=== PATIENT | female | born 1980 | race Caucasian/White ===

== ENCOUNTER 2018-05-30 08:41 | Emergency (ER) | payer BC ==
[2018-05-30 08:52] VITALS: BP 123/71
--- NOTE | 2018-05-30 09:41 | UC ---
Throat Pain/Nasal Frank HPI - HPI Summary HPI Summary: 38 yo female presents with sore throat for the last 2 days and dry cough for the last 4-5 days. Today she woke up and noticed her voice was raspy. Her children have been sick with similar symptoms and resolved in 5-7 days. Pt has been taking tylenol/ibuprofen with mild relief. She is eating and drinking well. Denies fever, chills, sinus symptoms, SOB, n/v. - History of Current Complaint Chief Complaint: UCRespiratory Stated Complaint: SORE THROAT Time Seen by Provider: 05/30/18 09:41 Hx Obtained From: Patient Hx Last Menstrual Period: IUD Onset/Duration: Gradual Onset Severity: Moderate Pain Intensity: 6 Pain Scale Used: 0-10 Numeric Cough: Nonproductive - Allergies/Home Medications Allergies/Adverse Reactions: Allergies Allergy/AdvReac Type Severity Reaction Status Date / Time Penicillins Allergy Hives Verified 05/30/18 08:52 Home Medications: Home Medications Sertraline* [Zoloft*] 100 mg PO DAILY 05/30/18 [History Confirmed 05/30/18] PMH/Surg Hx/FS Hx/Imm Hx Psychological History: Anxiety, Depression - Surgical History Surgical History: None - Family History Known Family History: Positive: None - Social History Occupation: Employed Full-time Lives: With Family Alcohol Use: Occasionally Substance Use Type: None Smoking Status (MU): Never Smoked Tobacco Review of Systems All Other Systems Reviewed And Are Negative: Yes Constitutional: Positive: Negative Skin: Positive: Negative Eyes: Positive: Negative ENT: Positive: Sore Throat Respiratory: Positive: Cough Cardiovascular: Positive: Negative Gastrointestinal: Positive: Negative Neurovascular: Positive: Negative Neurological: Positive: Negative Psychological: Positive: Negative Physical Exam - Summary Physical Exam Summary: GENERAL: NAD. WDWN. No pain distress. SKIN: No rashes, sores, lesions, or open wounds. HEENT: Head: AT/NC Eyes: EOM intact. Conjunctiva clear without inflammation or discharge. Ears: Hearing grossly normal. TMs intact, no bulging, erythema, or edema. Nose: Nasal mucosa pink and moist. NTTP maxillary and frontal sinus. Throat: Posterior oropharynx without exudates, erythema, or tonsillar enlargement. Uvula midline. NECK: Supple. Nontender. No lymphadenopathy. CHEST: CTAB. No r/r/w. No accessory muscle use. Breathing comfortably and in no distress. CV: RRR. Without m/r/g. Pulses intact. Cap refill <2seconds NEURO: Alert. PSYCH: Age appropriate behavior. Triage Information Reviewed: Yes Vital Signs: Initial Vital Signs Temp 99.9 F 05/30/18 08:48 Pulse 67 05/30/18 08:48 Resp 16 05/30/18 08:48 BP 123/71 05/30/18 08:48 Pulse Ox 98 05/30/18 08:48 Laboratory Tests 05/30/18 09:54 Group A Strep Rapid Negative Vital Signs Reviewed: Yes Throat Pain/Nasal Course/Dx - Course Course Of Treatment: POC strep negative. Suspect viral illness. Discussed with pt and advised to continue OTC medications and f/u if symptoms do not improve. - Differential Dx/Diagnosis Provider Diagnosis: Viral syndrome Discharge - Sign-Out/Discharge Documenting (check all that apply): Patient Departure All imaging exams completed and their final reports reviewed: No Studies - Discharge Plan Condition: Stable Disposition: HOME Patient Education Materials: Pharyngitis (ED), Viral Syndrome (ED) Referrals: No Primary Care Phys,NOPCP [Primary Care Provider] - Additional Instructions: If you develop a fever, shortness of breath, chest pain, new or worsening symptoms - please call your PCP or go to the ED. - Billing Disposition and Condition Condition: STABLE Disposition: Home
== END 2018-05-30 10:09 | disposition home or self-care (01) ==
LOC: UCEAST 08:41
DX: B34.9 Viral infection, unspecified (principal); Z88.0 Allergy status to penicillin
CPT/HCPCS: 87651; 99211; G0463

== ENCOUNTER 2018-06-09 15:33 | Emergency (ER) | payer BC ==
[2018-06-09 15:46] VITALS: BP 124/67
--- NOTE | 2018-06-09 17:13 | UC ---
UC General HPI - HPI Summary HPI Summary: 38 yo female c/o progressively worse cough x 2 weeks. + household contact sick , but better. Today cough worse. Hurts chest to cough. No rash. Mild st. Today just doesn't "feel right." No GI c/o's except abdomen hurts with deep cough. No rash. No ear / eye / head issues. - History of Current Complaint Chief Complaint: UCRespiratory Stated Complaint: COUGH Time Seen by Provider: 06/09/18 16:54 Hx Obtained From: Patient Hx Last Menstrual Period: unkown- nursing Pain Intensity: 7 - Allergy/Home Medications Allergies/Adverse Reactions: Allergies Allergy/AdvReac Type Severity Reaction Status Date / Time Penicillins Allergy Hives Verified 06/09/18 15:46 Home Medications: Home Medications Levonorgestrel (Iud) [Mirena IUD] 20 mcg IU DAILY WITH MEAL 06/09/18 [History Confirmed 06/09/18] PMH/Surg Hx/FS Hx/Imm Hx Previously Healthy: Yes - takes zoloft, no recent changes - Surgical History Surgical History: None - Family History Known Family History: Positive: None - Social History Alcohol Use: Occasionally Substance Use Type: None Smoking Status (MU): Never Smoked Tobacco Review of Systems All Other Systems Reviewed And Are Negative: Yes Constitutional: Positive: Fatigue Skin: Positive: Negative Eyes: Positive: Other - see hpi ENT: Positive: Other Respiratory: Positive: Other Cardiovascular: Positive: Other Gastrointestinal: Positive: Other Genitourinary: Positive: Other Motor: Positive: Other - see hpi Neurovascular: Positive: Other - see hpi Musculoskeletal: Positive: Other: - see hpi Neurological: Positive: Other - see hpi Psychological: Positive: Other - see hpi Is Patient Immunocompromised?: No Physical Exam Triage Information Reviewed: Yes Appearance: Well-Nourished Vital Signs: Initial Vital Signs Temp 98.7 F 06/09/18 15:42 Pulse 70 06/09/18 15:42 Resp 18 06/09/18 15:42 BP 124/67 06/09/18 15:42 Pulse Ox 97 06/09/18 15:42 Vital Signs Reviewed: Yes Eye Exam: Normal ENT: Positive: Pharyngeal erythema - mild red, no exudates/ sores, TM dull Neck exam: Normal Neck: Positive: Supple, Nontender Respiratory Exam: Other - BS full bilat. R chest (base and upper back) wheeze, not noted in Left. Not sob / dyspneic. + cough, rhonchorus. Cardiovascular Exam: Normal Cardiovascular: Positive: RRR, No Murmur, Pulses Normal, Brisk Capillary Refill Abdominal Exam: Normal Musculoskeletal Exam: Normal - moves x 4 ext's, gait steady Neurological Exam: Normal - grossly nonfocal Psychological Exam: Normal - conversing easily and appropriately Skin Exam: Normal Course/Dx - Course Course Of Treatment: R chest (base and upper back) wheeze, not noted in Left. Not sob / dyspneic. + cough, rhonchorus. Ms. Ray is not able to stay for chest xray. Will call her pcp at [facility] to arrange f/u early next week, may need cxr if worse or new better. As such, dx - bronchitis with wheezing but will rx for possible pneumonia. + recent sick household contact, better. Questions as posed answered to the best of my ability. - Diagnoses Provider Diagnosis: Bronchitis, Wheezing Discharge - Sign-Out/Discharge Documenting (check all that apply): Patient Departure All imaging exams completed and their final reports reviewed: No Studies - Discharge Plan Condition: Stable Disposition: HOME Prescriptions: Albuterol HFA INHALER* [Ventolin HFA Inhaler*] 1 - 2 puff INH Q4H PRN #1 mdi PRN Reason: Cough Benzonatate CAP* [Tessalon 100 MG CAP*] 100 mg PO TID PRN #30 cap PRN Reason: Cough Clarithromycin TAB* [Biaxin 500 MG TAB*] 500 mg PO BID #20 tab Patient Education Materials: Acute Bronchitis (ED), Wheezing (ED) Forms: *Work Release Referrals: No Primary Care Phys,NOPCP [Primary Care Provider] - Additional Instructions: Please follow up with your [facility] doctor early next week. Seek medical attention for worse or new problems in the meantime. - Billing Disposition and Condition Condition: STABLE Disposition: Home
== END 2018-06-09 17:28 | disposition home or self-care (01) ==
LOC: UCEAST 15:33
DX: J40 Bronchitis, not specified as acute or chronic (principal); R06.2 Wheezing; Z88.0 Allergy status to penicillin
CPT/HCPCS: 99212; G0463

== ENCOUNTER 2018-11-02 15:12 | Emergency (ER) | payer BC ==
[2018-11-02 15:47] VITALS: BP 99/65
--- NOTE | 2018-11-02 16:36 | UC ---
Throat Pain/Nasal Frank HPI - HPI Summary HPI Summary: 38 yo female presents with sore throat for the last 2 days. She has small children at home and is concerned for strep. She has had no sick contacts that she is aware of. She took ibuprofen for her discomfort with mild improvement. She is eating, drinking, and tolerating po well. Denies fever, chills, sinus symptoms, cough, rash, n/v. - History of Current Complaint Chief Complaint: UCGeneralIllness Stated Complaint: ST Time Seen by Provider: 11/02/18 16:35 Hx Obtained From: Patient Hx Last Menstrual Period: [id number] Onset/Duration: Gradual Onset Severity: Moderate Pain Intensity: 6 Pain Scale Used: 0-10 Numeric - Allergies/Home Medications Allergies/Adverse Reactions: Allergies Allergy/AdvReac Type Severity Reaction Status Date / Time Penicillins Allergy Hives Verified 11/02/18 15:47 PMH/Surg Hx/FS Hx/Imm Hx Psychological History: Anxiety, Depression - Surgical History Surgical History: None - Family History Known Family History: Positive: None - Social History Occupation: Employed Full-time Lives: With Family Alcohol Use: Weekly Substance Use Type: None Smoking Status (MU): Never Smoked Tobacco Review of Systems All Other Systems Reviewed And Are Negative: Yes Constitutional: Positive: Negative Skin: Positive: Negative Eyes: Positive: Negative ENT: Positive: Sore Throat Respiratory: Positive: Negative Cardiovascular: Positive: Negative Neurovascular: Positive: Negative Neurological: Positive: Negative Psychological: Positive: Negative Physical Exam - Summary Physical Exam Summary: GENERAL: NAD. WDWN. No pain distress. SKIN: No rashes, sores, lesions, or open wounds. HEENT: Head: AT/NC Eyes: EOM intact. Conjunctiva clear without inflammation or discharge. Ears: Hearing grossly normal. TMs intact, no bulging, erythema, or edema. Nose: Nasal mucosa pink and moist. NTTP maxillary and frontal sinus. Throat: Posterior oropharynx without exudates, erythema, or tonsillar enlargement. Uvula midline. NECK: Supple. Nontender. No lymphadenopathy. CHEST: CTAB. No r/r/w. No accessory muscle use. Breathing comfortably and in no distress. CV: RRR. Without m/r/g. Pulses intact. Cap refill <2seconds NEURO: Alert. PSYCH: Age appropriate behavior. Triage Information Reviewed: Yes Vital Signs: Initial Vital Signs Temp 99.0 F 11/02/18 15:43 Pulse 50 11/02/18 15:43 Resp 16 11/02/18 15:43 BP 99/65 11/02/18 15:43 Pulse Ox 100 11/02/18 15:43 Vital Signs Reviewed: Yes Throat Pain/Nasal Course/Dx - Course Course Of Treatment: POC strep negative. Suspect viral pharyngitis. Advised to continue OTC medications and may try warm salt water gargles or tea with honey for discomfort. F/u if symptoms worsen or do not improve - Differential Dx/Diagnosis Provider Diagnosis: Pharyngitis Discharge - Sign-Out/Discharge Documenting (check all that apply): Patient Departure All imaging exams completed and their final reports reviewed: No Studies - Discharge Plan Condition: Stable Disposition: HOME Patient Education Materials: Pharyngitis (ED) Referrals: Jocelyn Marie MD [Primary Care Provider] - Additional Instructions: If you develop a fever, shortness of breath, chest pain, new or worsening symptoms - please call your PCP or go to the ED immediately. Your strep test today was negative and your exam was normal. I suspect your sore throat is due to a viral illness. Please continue over the counter tylenol/ibuprofen for your discomfort. May also try warm salt water gargles or tea with honey for discomfort. If your symptoms worsen or continue, please be rechecked - Billing Disposition and Condition Condition: STABLE Disposition: Home
== END 2018-11-02 16:52 | disposition home or self-care (01) ==
LOC: UCEAST 15:12
DX: J02.9 Acute pharyngitis, unspecified (principal); F41.9 Anxiety disorder, unspecified; F32.9 Major depressive disorder, single episode, unspecified; Z88.0 Allergy status to penicillin
CPT/HCPCS: 87651; 99211; G0463

== ENCOUNTER 2018-12-12 11:04 | Emergency (ER) | payer BC ==
--- NOTE | 2018-12-12 11:48 | UC ---
Throat Pain/Nasal Frank HPI - HPI Summary HPI Summary: 38 yo female presents with sinus symptoms. She tells me that about a month ago she had a sore throat that developed into a cough and sinus pain/pressure/ congestion. She used a netti pot and OTC medications and her symptoms improved after a few days, but her sinus symptoms are still persisting. She denies fevers , chills, SOB, rash, n/v. She does not smoke. - History of Current Complaint Stated Complaint: SINUS ISSUE Time Seen by Provider: 12/12/18 11:48 Hx Obtained From: Patient Hx Last Menstrual Period: [id number] Onset/Duration: Gradual Onset Severity: Moderate Pain Intensity: 6 Pain Scale Used: 0-10 Numeric - Allergies/Home Medications Allergies/Adverse Reactions: Allergies Allergy/AdvReac Type Severity Reaction Status Date / Time Penicillins Allergy Hives Verified 12/12/18 11:56 PMH/Surg Hx/FS Hx/Imm Hx Psychological History: Anxiety, Depression - Surgical History Surgical History: None - Family History Known Family History: Positive: None - Social History Occupation: Employed Full-time Lives: With Family Alcohol Use: Weekly Substance Use Type: None Smoking Status (MU): Never Smoked Tobacco Review of Systems All Other Systems Reviewed And Are Negative: No Constitutional: Positive: Negative Skin: Positive: Negative Eyes: Positive: Negative ENT: Positive: Nasal Discharge, Sinus Congestion, Sinus Pain/Tenderness Respiratory: Positive: Negative Cardiovascular: Positive: Negative Neurological: Positive: Negative Psychological: Positive: Negative Physical Exam - Summary Physical Exam Summary: GENERAL: NAD. WDWN. No pain distress. SKIN: No rashes, sores, lesions, or open wounds. HEENT: Head: AT/NC Eyes: EOM intact. Conjunctiva clear without inflammation or discharge. Ears: Hearing grossly normal. TMs intact, no bulging, erythema, or edema. Nose: Nasal mucosa mildly swollen and erythematous with yellow/ clear discharge. TTP maxillary and frontal sinus. Positive post nasal drip Throat: Posterior oropharynx without exudates, erythema, or tonsillar enlargement. Uvula midline. NECK: Supple. Nontender. No lymphadenopathy. CHEST: CTAB. No r/r/w. No accessory muscle use. Breathing comfortably and in no distress. CV: RRR. Without m/r/g. Pulses intact. NEURO: Alert. PSYCH: Age appropriate behavior. Triage Information Reviewed: Yes Vital Signs: Vital Signs: Temp Pulse Resp BP Pulse Ox 98.9 F 71 18 117/67 99 12/12/18 11:50 12/12/18 11:50 12/12/18 11:50 12/12/18 11:50 12/12/18 11:50 Vital Signs Reviewed: Yes Throat Pain/Nasal Course/Dx - Course Course Of Treatment: Sinusitis - Differential Dx/Diagnosis Provider Diagnosis: Sinusitis Discharge ED - Sign-Out/Discharge Documenting (check all that apply): Patient Departure All imaging exams completed and their final reports reviewed: No Studies - Discharge Plan Condition: Stable Disposition: HOME Prescriptions: Azithromycin TAB* [Zithromax TAB (Z-DURGA) 250 mg #6 tabs] 2 tab PO .TODAY, THEN 1 DAILY #1 durga Patient Education Materials: Sinusitis (ED) Referrals: Jocelyn Marie MD [Primary Care Provider] - Additional Instructions: If you develop a fever, shortness of breath, chest pain, new or worsening symptoms - please call your PCP or go to the ED immediately. - Billing Disposition and Condition Condition: STABLE Disposition: Home
[2018-12-12 11:52] VITALS: BP 117/67
== END 2018-12-12 12:07 | disposition home or self-care (01) ==
LOC: UCEAST 11:04
DX: J32.9 Chronic sinusitis, unspecified (principal); F41.9 Anxiety disorder, unspecified; F32.9 Major depressive disorder, single episode, unspecified; Z88.0 Allergy status to penicillin
CPT/HCPCS: 99212; G0463

== ENCOUNTER 2019-02-03 09:20 | Emergency (ER) | payer BC ==
[2019-02-03 09:58] VITALS: BP 113/61
--- NOTE | 2019-02-03 10:06 | UC ---
Throat Pain/Nasal Frank HPI - HPI Summary HPI Summary: patient started with sore throat 2 days ago, slight nausea, son is currently diagnosed with strep and on antibx - History of Current Complaint Chief Complaint: UCRespiratory Stated Complaint: sore THROAT Time Seen by Provider: 02/03/19 09:21 Hx Obtained From: Patient Hx Last Menstrual Period: [id number] ?: No Onset/Duration: Gradual Onset Severity: Mild Pain Intensity: 3 Cough: None Associated Signs & Symptoms: Negative: Hoarseness, Sinus Discomfort, Fever, Vomiting, Rash - Allergies/Home Medications Allergies/Adverse Reactions: Allergies Allergy/AdvReac Type Severity Reaction Status Date / Time Penicillins Allergy Hives Verified 02/03/19 09:58 PMH/Surg Hx/FS Hx/Imm Hx Previously Healthy: Yes Psychological History: Anxiety - Surgical History Surgical History: None - Family History Known Family History: Positive: None - Social History Occupation: Employed Full-time Lives: With Family Alcohol Use: Weekly Substance Use Type: None Smoking Status (MU): Never Smoked Tobacco Review of Systems All Other Systems Reviewed And Are Negative: Yes Constitutional: Positive: Negative Skin: Positive: Negative ENT: Positive: Sore Throat. Negative: Ear Ache, Sinus Congestion Respiratory: Positive: Negative. Negative: Cough Cardiovascular: Positive: Negative Gastrointestinal: Positive: Nausea - mild 2 days ago Neurological: Positive: Negative. Negative: Headache Psychological: Positive: Negative Is Patient Immunocompromised?: No Physical Exam Triage Information Reviewed: Yes Appearance: Well-Appearing, No Pain Distress, Well-Nourished Vital Signs: Initial Vital Signs Temp 98.4 F 02/03/19 09:54 Pulse 72 02/03/19 09:54 Resp 18 02/03/19 09:54 BP 113/61 02/03/19 09:54 Pulse Ox 98 02/03/19 09:54 Vital Signs Reviewed: Yes Eye Exam: Normal Eyes: Positive: Conjunctiva Clear ENT: Positive: Pharyngeal erythema, TMs normal, Tonsillar swelling. Negative: Nasal congestion, Tonsillar exudate Neck exam: Normal Neck: Positive: No Lymphadenopathy Respiratory Exam: Normal Respiratory: Positive: Lungs clear Cardiovascular Exam: Normal Cardiovascular: Positive: RRR Abdominal Exam: Normal Abdomen Description: Positive: Nontender, No Organomegaly, Soft Bowel Sounds: Positive: Present Neurological Exam: Normal Psychological Exam: Normal Skin Exam: Normal Skin: Negative: Rashes Throat Pain/Nasal Course/Dx - Differential Dx/Diagnosis Differential Diagnosis/HQI/PQRI: Pharyngitis, Sinusitis, Tonsillitis, URI Provider Diagnosis: Pharyngitis Discharge ED - Sign-Out/Discharge Documenting (check all that apply): Patient Departure All imaging exams completed and their final reports reviewed: No Studies - Discharge Plan Condition: Good Disposition: HOME Prescriptions: Azithromycin TAB* [Zithromax TAB (Z-DURGA) 250 mg #6 tabs] 2 tab PO .TODAY, THEN 1 DAILY #1 durga Patient Education Materials: Pharyngitis (ED) Referrals: Jocelyn Marie MD [Primary Care Provider] - 2 Days (if no better) Additional Instructions: drink plenty of fluids and rest start antibiotic if ST worsens or you develop a fever ibuprofen 600mg every 6 hours for pain - Billing Disposition and Condition Condition: GOOD Disposition: Home
== END 2019-02-03 10:36 | disposition home or self-care (01) ==
LOC: UCEAST 09:20
DX: J02.9 Acute pharyngitis, unspecified (principal); R11.0 Nausea; Z88.0 Allergy status to penicillin
CPT/HCPCS: 87651; 99212; G0463

== ENCOUNTER 2019-04-06 09:14 | Emergency (ER) | payer BC ==
--- OUTSIDE RECORDS SUMMARY | 2019-04-06 11:02 | XMS REPORT | Summary of Care ---
:1980 Author Organization [facility] Address [address] [place] [address] Care Team Providers Name Role Phone Jocelyn Marie MD Primary Care Provider Reason for Visit Reason Comments Check Up Encounter Details Date Type Department Care Team Description 02/06/2019 Office Visit Anna Mata Cynthia ROSHNI (generalized anxiety disorder) (Primary Dx); Practice Jocelyn Mosqurea MD Screening for lipid disorders; [address] [place] [address] Screening mammogram, encounter for; [place], [place] [id number] [place] [address] Screening for diabetes mellitus [phone] Allergies Active Allergy Reactions Severity Noted Date Comments Amoxicillin Hives Medium 04/28/2017 Penicillins Unknown Reaction 04/28/2017 documented as of this encounter (statuses as of 02/06/2019) Medications Medication Sig Dispensed Refills Start End Date Status Date Levonorgestrel by Intrauterine 0 Active (MIRENA, 52 MG,) route. 20 MCG/24HR Intrauterine IUD sertraline Take 1 Tab by 90 Tab 3 Active (ZOLOFT) 100 MG mouth DAILY. 9 Oral TabIndications: ROSHNI (generalized anxiety disorder) albuterol HFA Take 2 Puffs by 0 02/07/20 Discontinued (PROVENTIL,VENTOLI inhalation FOUR 19 (Therapy N) 108 (90 BASE) TIMES DAILY. Completed) MCG/ACT Inhalation Aero Soln CLARITHROMYCIN PO Take by mouth. 0 02/07/20 Discontinued 19 (Therapy Completed) sertraline Take 1 Tab by 90 Tab 0 02/07/20 Discontinued (ZOLOFT) 100 MG mouth DAILY. 9 19 (Reorder) Oral TabIndications: ROSHNI (generalized anxiety disorder) documented as of this encounter (statuses as of 02/06/2019) Active Problems Problem Noted Date Anxiety documented as of this encounter (statuses as of 02/06/2019) Immunizations Name Administration Dates Next Due Influenza (IM) Preservative Free 01/19/2019, 01/12/2018 TDAP Vaccine 09/02/2016 documented as of this encounter Social History Tobacco Use Types Packs/Day Years Used Date Never Smoker Smokeless Tobacco: Never Used Alcohol Use Drinks/Week oz/Week Comments Yes 2 Glasses of wine 2.0 Sex Assigned at Date Recorded Not on file Job Start Date Occupation Industry Not on file Not on file Not on file Travel History Travel Start Travel End No recent travel history available. documented as of this encounter Last Filed Vital Signs Vital Sign Reading Time Taken Comments Blood Pressure 102/60 02/06/2019 3:25 PM EST Pulse 53 02/06/2019 3:25 PM EST Temperature - - Respiratory Rate - - Oxygen Saturation 99% 02/06/2019 3:25 PM EST Inhaled Oxygen Concentration - - Weight 65.8 kg (145 lb) 02/06/2019 3:25 PM EST Height 165.1 cm (5' 5") 02/06/2019 3:25 PM EST Body Mass Index 24.13 02/06/2019 3:25 PM EST documented in this encounter Patient Instructions Patient InstructionsJocelyn Marie MD - 02/06/2019 3:20 PM PAULA refilled your sertraline today. I ordered fasting laboratory tests and will send you the results. I ordered your mammogram. Please follow up at least yearly DIET AND EXERCISE: Exercise is recommended 150 minutes weekly: 30 minutes five days a week of moderate exercise such as walking. In addition is it recommended you have two days weekly of working all your major muscle groups (arms, legs) such as with weight lifting or other exercise. I recommend a well balanced healthy diet, portion control, drink plenty of fluids. The Mediterranean diet is an excellent diet. Be sure to get adequate sleep at night, 8 hours. 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 female who presents for follow up and med refill. Last Visit 11/2017 History of Present Illness: Here for follow up and med refill. 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 Per last year: Has 2 y/o and 7 y/o She denies related diabetes or hypertension. Documentation Only on 01/16/2018 Component Date Value Ref Range Status HM PAP SMEAR 01/05/2018 normal, HPV neg Final Lab Results Component Value Date NA 142 11/22/2017 K 4.3 11/22/2017 CL 102 11/22/2017 CO2 27 11/22/2017 GLUCOSE 91 11/22/2017 BUN 16 11/22/2017 CREATININE 0.7 11/22/2017 CALCIUM 9.7 11/22/2017 TP 7.7 11/22/2017 ALBUMIN 4.6 11/22/2017 AST 32 11/22/2017 ALT 19 11/22/2017 ALK 73 11/22/2017 TBILI 1.4 (H) 11/22/2017 EGFR >60 11/22/2017 Lab Results Component Value Date GLYCO 5.2 11/22/2017 Patient Active Problem List Diagnosis Anxiety Past Medical History: Diagnosis Date Anxiety Irritable bowel syndrome with diarrhea improved during and with nursing; had a negative work up when in her 20's Ocular migraine when Past Surgical History: Procedure Laterality Date DENTAL OPERATION NEC wisdom teeth Current Outpatient Medications: Levonorgestrel (MIRENA, 52 MG,) 20 MCG/24HR Intrauterine IUD, by Intrauterine route., Disp: , Rfl: sertraline (ZOLOFT) 100 MG Oral Tab, Take 1 Tab by mouth DAILY., Disp: 90 Tab, Rfl: 3 Allergies Allergen Reactions Amoxicillin Hives Penicillins Unknown Reaction Social History Socioeconomic History Marital status: Spouse name: Not on file Number of children: Not on file Years of education: Not on file Highest education level: Not on file Occupational History Not on file Social Needs Financial resource strain: Not on file Food insecurity: Worry: Not on file Inability: Not on file Transportation needs: Medical: Not on file Non-medical: Not on file Tobacco Use Smoking status: Never Smoker Smokeless tobacco: Never Used Substance and Sexual Activity Alcohol use: Yes Alcohol/week: 2.0 standard drinks Types: 2 Glasses of wine per week Drug use: No Sexual activity: Yes Partners: Male control/protection: I.U.D. Lifestyle Physical activity: Days per week: Not on file Minutes per session: Not on file Stress: Not on file Relationships Social connections: Talks on phone: Not on file Gets together: Not on file Attends denominational service: Not on file Active member of club or organization: Not on file Attends meetings of clubs or organizations: Not on file Relationship status: Not on file Intimate partner violence: Fear of current or ex partner: Not on file Emotionally abused: Not on file Physically abused: Not on file Forced sexual activity: Not on file Other Topics Concern Back Care Not Asked Bike Helmet Not Asked Blood Transfusions No Caffeine Concern Yes Comment: 1-2/d Exercise Yes Comment: 4 times a week: runs, gym Hobby Hazards No International Travel No Service No Occupational Exposure No Seat Belt Yes Self-Exams Yes Sleep Concern No Special Diet No Stress Concern No Weight Concern No Social History Narrative Not on file Family History Problem Relation Age of Onset Blood Disease Mother sarcoidosis No Known Problems Father Alcohol/Drug Brother recovered, drug Alzheimer's Disease Paternal Uncle 61 early onset Health Maintenance Topic Date Due LIPID DISORDER SCREENING 02/13/1996 MAMMOGRAM (SCREENING) 2018 DEPRESSION SCREENING 02/07/2020 PAP SMEAR 01/05/2021 INFLUENZA VACCINE Completed HPV IMMUNIZATION SERIES Aged Out MENINGOCOCCAL VACCINE IMM Aged Out PNEUMOCOCCAL 0-64 YRS Aged Out Last pap smear : Within 4 yrs. Tdap last 2017 Influenza shot yearly Review Of Systems General ROS: negative for - chills or fever, unexpected weight changes ENT ROS: negative for - headaches, nasal congestion, sore throat or visual changes Respiratory ROS: negative for - cough, Cardiovascular ROS: negative for - chest pain,edema or palpitations Gastrointestinal ROS: no abdominal pain Psych: Denies depression, anxiety Denies suicidal or homicidal ideation PHYSICAL EXAMINATION: BP 102/60 (BP Location: Right arm, Patient Position: Sitting) | Pulse 53 | Ht 5' 5" (1.651 m) | Wt 145 lb (65.8 kg) | SpO2 99% | ? No | BMI 24.13 kg/m Physical Examination: General appearance - alert, well appearing, and in no distress Mental status - alert, oriented to person, place, and time, normal mood, behavior, speech, dress, motor activity, and thought processes Eyes - pupils equal and reactive, extraocular eye movements intact, sclera anicteric Ears - bilateral TM's and external ear canals normal Neck - supple, no cervical or supraclavicular adenopathy, carotids upstroke normal bilaterally, no bruits, thyroid exam: thyroid is normal in size without nodules or tenderness, no neck masses palpated. Chest/Lungs - clear to auscultation, no wheezes, rales or rhonchi, symmetric air entry, good aeration Heart - normal rate, regular rhythm, normal S1, S2, no murmurs, rubs, clicks or gallops Abdomen - soft, non tender on palpation, nondistended, no masses or hepatosplenomegaly, bowel soundsnormal, normal to percussion, no guarding or rebound. No costervertebral angle tenderness Neurological - alert, oriented, normal speech, no gross focal findings or movement disorder noted Extremities - dorsalis pedis pulses normal, no pedal edema, no clubbing or cyanosis ASSESSMENT/PLAN: ICD-9-CM ICD-10-CM 1. ROSHNI (generalized anxiety disorder) 300.02 F41.1 sertraline (ZOLOFT) 100 MG Oral Tab 2. Screening for lipid disorders V77.91 Z13.220 LIPID PROFILE 3. Screening mammogram, encounter for V76.12 Z12.31 MAMMO SCREENING TOMOSYNTHESIS BILATERAL 4. Screening for diabetes mellitus V77.1 Z13.1 COMPREHENSIVE METABOLIC PANEL Refill sent. She agrees to send me her lipid profile from June Laboratory tests above ordered Follow up every 6 months, sooner if any problems. She asks if she can see gastroenterology if her IBS returns when she stops nursing the baby. Yes, just let me know. Patient Instructions I refilled your sertraline today. I ordered fasting laboratory tests and will send you the results. I ordered your mammogram. Please follow up at least yearly DIET AND EXERCISE: Exercise is recommended 150 minutes weekly: 30 minutes five days a week of moderate exercise such as walking. In addition is it recommended you have two days weekly of working all your major muscle groups (arms, legs) such as with weight lifting or other exercise. I recommend a well balanced healthy diet, portion control, drink plenty of fluids. The Mediterranean diet is an excellent diet. Be sure to get adequate sleep at night, 8 hours. Author: Jocelyn Marie MD 02/06/2019 15:53 documented in this encounter Plan of Treatment Date Type Specialty Care Team Description 03/07/2019 Ancillary Procedure Radiology Name Type Priority Associated Diagnoses Order Schedule MAMMO SCREENING Imaging Routine Screening mammogram, Expected: TOMOSYNTHESIS BILATERAL encounter for 02/06/2019, Expires: 05/06/2020 COMPREHENSIVE METABOLIC Lab Routine Screening for diabetes Expected: 2018 PANEL mellitus (Approximate), Expires: 02/07/2020 LIPID PROFILE Lab Routine Screening for lipid Expected: 02/06/2019 disorders (Approximate), Expires: 02/07/2020 Health Maintenance Due Date Last Done Comments LIPID DISORDER SCREENING 02/13/1996 MAMMOGRAM (SCREENING) 2018 DEPRESSION SCREENING 02/07/2020 02/06/2019 PAP SMEAR 01/05/2021 01/05/2018 INFLUENZA VACCINE Completed 01/19/2019, 01/12/2018 HPV IMMUNIZATION SERIES Aged Out No longer eligible based on patient's age to complete this topic MENINGOCOCCAL VACCINE IMM Aged Out No longer eligible based on patient's age to complete this topic PNEUMOCOCCAL 0-64 YRS Aged Out No longer eligible based on patient's age to complete this topic documented as of this encounter Results Not on filedocumented in this encounter Visit Diagnoses Diagnosis ROSHNI (generalized anxiety disorder) - Primary Generalized anxiety disorder Screening for lipid disorders Screening mammogram, encounter for Screening for diabetes mellitus documented in this encounter Insurance Payer Benefit Plan / Subscriber ID Effective Dates Phone Address Type Group [employer] x[employer]xxx 2015-Present [employer] documented as of this encounter
[2019-04-06 11:04] VITALS: BP 102/57
--- NOTE | 2019-04-06 11:16 | UC ---
Throat Pain/Nasal Frank HPI - HPI Summary HPI Summary: 5 DAYS OF SORE THROAT AND PAIN WITH SWALLOWING. GETTING WORSE OVER THE PAST 2 DAYS. PATIENT REPORTS A LOW-GRADE TEMP OF ABOUT 100 A FEW DAYS AGO AND HAS BEEN ON ANTI-PYRETICS PRETTY MUCH AROUND THE CLOCK SINCE THEN. HAS SOME MILD NASAL CONGESTION BUT DENIES COUGH, EAR PAIN, NAUSEA/VOMITING. - History of Current Complaint Stated Complaint: SORE THROAT Time Seen by Provider: 04/06/19 10:54 Hx Obtained From: Patient Hx Last Menstrual Period: [id number] Onset/Duration: Gradual Onset, Lasting Days, Still Present Severity: Moderate Pain Intensity: 7 Pain Scale Used: 0-10 Numeric Cough: None Associated Signs & Symptoms: Positive: Fever - Allergies/Home Medications Allergies/Adverse Reactions: Allergies Allergy/AdvReac Type Severity Reaction Status Date / Time Penicillins Allergy Hives Verified 04/06/19 11:04 Home Medications: Home Medications Ibuprofen 400 mg PO ONCE 04/06/19 [History Confirmed 04/06/19] PMH/Surg Hx/FS Hx/Imm Hx Psychological History: Anxiety - Surgical History Surgical History: None - Family History Known Family History: Positive: None - Social History Alcohol Use: Weekly Substance Use Type: None Smoking Status (MU): Never Smoked Tobacco Review of Systems All Other Systems Reviewed And Are Negative: Yes Constitutional: Positive: Fever, Fatigue ENT: Positive: Sore Throat, Nasal Discharge Respiratory: Positive: Negative Cardiovascular: Positive: Negative Gastrointestinal: Positive: Negative Physical Exam Triage Information Reviewed: Yes Appearance: Well-Appearing, No Pain Distress, Well-Nourished Vital Signs: Initial Vital Signs Temp 98.8 F 04/06/19 11:01 Pulse 60 04/06/19 11:01 Resp 18 04/06/19 11:01 BP 102/57 04/06/19 11:01 Pulse Ox 100 04/06/19 11:01 Laboratory Tests 04/06/19 11:18 Group A Strep Rapid Positive A Vital Signs Reviewed: Yes Eyes: Positive: Conjunctiva Clear ENT: Positive: Hearing grossly normal, Pharynx normal, TMs normal Neck: Positive: Supple, Tenderness @ - MILDLY TENDER ANTERIOR CERVICAL LAD, Enlarged Nodes @ - MILDLY TENDER ANTERIOR CERVICAL LAD Respiratory Exam: Normal Cardiovascular Exam: Normal Abdomen Description: Positive: Soft Musculoskeletal: Positive: No Edema Neurological: Positive: Alert Psychological: Positive: Age Appropriate Behavior Skin: Negative: Rashes Throat Pain/Nasal Course/Dx - Course Course Of Treatment: STREP POSITIVE. WILL GIVE KEFLEX TWICE DAILY FOR 10 DAYS. ADVISED TO STAY WELL HYDRATED AND TAKE IBUPROFEN NEEDED FOR FEVER AND SORE THROAT. PATIENT REPORTS A RASH REACTION TO AMOXICILLIN WHEN SHE WAS A BABY. DISCUSSED POSSIBILITY ALBEIT A SMALL ONE OF CROSS REACTIVITY WITH CEPHALOSPORINS. PATIENT WILL BE VIGILANT OF HER SYMPTOMS AND SEEK REEVALUATION IF SHE DEVELOPS ANY CONCERNING SYMPTOMS. - Differential Dx/Diagnosis Provider Diagnosis: Strep pharyngitis Discharge ED - Sign-Out/Discharge Documenting (check all that apply): Patient Departure All imaging exams completed and their final reports reviewed: No Studies - Discharge Plan Condition: Stable Disposition: HOME Prescriptions: Cephalexin CAP* [Keflex 500 CAP*] 500 mg PO BID #20 cap Patient Education Materials: Strep Throat (ED) Referrals: Jocelyn Marie MD [Primary Care Provider] - If Needed Additional Instructions: STREP POSITIVE. TAKE ANTIBIOTICS FOR THE FULL 10 DAYS. OTC CHLORASEPTIC OR CEPACOL LOZENGES AND/OR IBUPROFEN FOR SORE THROAT NEEDED ONCE SYMPTOMS RESOLVED - NEW TOOTHBRUSH DO NOT SHARE FOOD, DRINK, UTENSILS - Billing Disposition and Condition Condition: STABLE Disposition: Home
== END 2019-04-06 11:37 | disposition home or self-care (01) ==
LOC: UCEAST 09:14
DX: J02.0 Streptococcal pharyngitis (principal); Z88.0 Allergy status to penicillin
CPT/HCPCS: 87651; 99212; G0463